=== PATIENT | male | born 1990 ===

== ENCOUNTER 2018-10-25 12:28 | Inpatient (IN) | payer OTHER ==
--- NOTE | 2018-10-25 13:07 | ED PDOC ---
Arrival/HPI - General Chief Complaint: Abdominal Pain Time Seen by Provider: 10/25/18 13:01 Historian: Patient - History of Present Illness Narrative History of Present Illness (Text): 10/25/18 13:02 28 y/o male, pmh including renal stone and hernia, nkda, c/o lt. sided abdominal pain with diarrhea and chest pain x 2 days with no recent traveling/fall. Aching pain, associated with couple episodes of watery diarrhea with no recent antibiotic use for the past 3 weeks, admits mid chest pain and non-exertional from diarrhea, no coughing, no palpitation, no change in vision, no numbness or tingling, no dizziness, no flank pain, no other medical or psychological complaints. Past Medical History - Provider Review Nursing Documentation Reviewed: Yes - Infectious Disease Hx of Infectious Diseases: None - Past Medical History Past Medical History: No Previous - Cardiac Hx Cardiac Disorders: No - Pulmonary Hx Respiratory Disorders: No - Neurological Hx Neurological Disorder: No - HEENT Hx HEENT Disorder: No - Renal Hx Renal Disorder: Yes Hx Kidney Stones: Yes (dx ) - Endocrine/Metabolic Hx Endocrine Disorders: No - Hematological/Oncological Hx Blood Disorders: No - Integumentary Hx Dermatological Disorder: No - Musculoskeletal/Rheumatological Hx Musculoskeletal Disorders: No - Gastrointestinal Hx Gastrointestinal Disorders: No Hx Fatty Liver Disease: Yes - Genitourinary/Gynecological Hx Genitourinary Disorders: Yes Hx Hematuria: Yes (11 yrs ago due to uti) Hx Urinary Tract Infection: Yes (11 yrs ago) - Psychiatric Hx Psychophysiologic Disorder: No Hx Substance Use: No - Past Surgical History Past Surgical History: No Previous - Surgical History Other/Comment: hernia 2015 - Anesthesia Hx Anesthesia: No - Suicidal Assessment Feels Threatened In Home Enviroment: No Family/Social History - Physician Review Nursing Documentation Reviewed: Yes Family/Social History: Unknown Family HX Smoking Status: Never Smoked Hx Alcohol Use: No Hx Substance Use: No Allergies/Home Meds Allergies/Adverse Reactions: Allergies No Known Allergies Allergy (Verified 11/09/15 16:12) Review of Systems - Review of Systems Constitutional: absent: Fatigue, Fevers Eyes: absent: Vision Changes ENT: absent: Hearing Changes Respiratory: absent: SOB, Cough Cardiovascular: Chest Pain Gastrointestinal: Abdominal Pain, Diarrhea. absent: Nausea, Vomiting Musculoskeletal: absent: Arthralgias, Back Pain Skin: absent: Rash, Pruritis Neurological: absent: Headache, Dizziness Psychiatric: absent: Anxiety, Depression, Suicidal Ideation Physical Exam Vital Signs Reviewed: Yes Vital Signs Temp Pulse Resp BP Pulse Ox 10/25/18 12:46 99.2 F 98 H 18 120/73 97 Temperature: Afebrile Blood Pressure: Normal Pulse: Regular Respiratory Rate: Normal Appearance: Positive for: Well-Appearing, Non-Toxic, Comfortable Pain Distress: Mild Mental Status: Positive for: Alert and Oriented X 3 - Systems Exam Head: Present: Atraumatic, Normocephalic Pupils: Present: PERRL Extroacular Muscles: Present: EOMI Conjunctiva: Present: Normal Ears: Present: NORMAL TM, Normal Canal Mouth: Present: Moist Mucous Membranes Neck: Present: Normal Range of Motion, Trachea Midline. No: Meningeal Signs, MIDLINE TENDERNESS, Paraspinal Tenderness, Lymphadenopathy Respiratory/Chest: Present: Clear to Auscultation, Good Air Exchange. No: Respiratory Distress, Accessory Muscle Use, Wheezes, Decreased Breath Sounds, Rales, Retracting, Rhonchi, Tachypneic, Tender to Palpation Cardiovascular: Present: Regular Rate and Rhythm, Normal S1, S2. No: Murmurs Abdomen: Present: Tenderness (lt. sided abdomen). No: Distention, Peritoneal Signs, Rebound, Guarding Back: Present: Normal Inspection. No: CVA Tenderness, Midline Tenderness, Paraspinal Tenderness, Pain with Leg Raise, Decubitus Ulcer Upper Extremity: Present: Normal Inspection. No: Cyanosis, Edema Lower Extremity: Present: Normal Inspection. No: Edema Neurological: Present: GCS=15, CN II-XII Intact, Speech Normal, Motor Func Grossly Intact, Gait Normal, Memory Normal Skin: Present: Warm, Dry, Normal Color. No: Rashes Psychiatric: Present: Alert, Oriented x 3, Normal Insight, Normal Concentration Medical Decision Making ED Course and Treatment: 10/25/18 13:15 -labs -ekg -cxr -ct -IVF/pepcid -Observe and reassess 10/25/18 15:42 -EKG: NSR @ 99 BHPM< no ST elevation or depression, T wave inversion lead III -Chest xray: No active disease. -CT abdomen and pelvis: Fluid-filled prominent small bowel loops and fluid in the colon may represent nonspecific acute infectious/inflammatory enteritis and colitis. No bowel dilatation or obstruction. Mild hepatomegaly and fatty liver. -Labs show no acute findings -Lipase is normal -Mg within normal limit -Trop after 24 hours is negative -UA ordered and no sample -Chest pain resolved, still have abdominal pain, IV morphine and toradol ordered with cipro/flagyl (ciprofloxacin with adverse reaction and side effect explained to him including but not limited to achilles tendon rupture and prolong QT which he understands and willing to take the risk, advised to stop the gym activities as well. 10/25/18 16:59 -Pt. still having pain on abdomen, will admit. 10/25/18 17:03 -I spoke to Dr. Romo, discussed about the case/labs/radiology result, agreed to admit for observation - RAD Interpretation Radiology Orders: -Chest xray: Date of service: 10/25/2018 HISTORY: chest pain x 2 days COMPARISON: 12/15/2013 TECHNIQUE: Chest PA and lateral FINDINGS: LUNGS: No active pulmonary disease. PLEURA: No significant pleural effusion identified. No pneumothorax apparent. CARDIOVASCULAR: No aortic atherosclerotic calcification present. Mild cardiomegaly no pulmonary vascular congestion. OSSEOUS STRUCTURES: No significant abnormalities. VISUALIZED UPPER ABDOMEN: Normal. OTHER FINDINGS: None. IMPRESSION: No active disease. -CT abdomen and pelvis: Date of service: 10/25/2018 PROCEDURE: CT Abdomen and Pelvis with contrast HISTORY: LLQ abdominal pain and diarrhea x 2 days. COMPARISON: 11/09/2015. TECHNIQUE: CT scan of the abdomen and pelvis was performed after administration of intravenous contrast. Oral contrast was not administered. Coronal and sagittal reformatted images were obtained. Contrast dose: Radiation dose: Total exam DLP = 1562.61 mGy-cm. This CT exam was performed using one or more of the following dose reduction techniques: Automated exposure control, adjustment of the mA and/or kV according to patient size, and/or use of iterative reconstruction technique. FINDINGS: LOWER THORAX: The visualized lungs are clear. LIVER: Mild hepatomegaly and fatty liver. No gross lesion or ductal dilatation. GALLBLADDER AND BILE DUCTS: Well distended. No calcified gallstones, wall thickening or pericholecystic fluid. PANCREAS: Normal in size with homogeneous enhancement. No gross lesion or ductal dilatation. SPLEEN: Normal in size and appearance. ADRENALS: No discrete nodule. KIDNEYS AND URETERS: Normal in size with homogeneous enhancement. There is a punctate nonobstructing stone in the lower pole of the right kidney. No hydronephrosis. No solid mass. VASCULATURE: No aortic aneurysm. There are no aortic atherosclerotic calcifications or mural plaque present. BOWEL: Evaluation of the bowel is limited in the absence of oral contrast. There are fluid-filled prominent small bowel loops and fluid in the colon. The left hemicolon is decompressed. No bowel wall thickening or obstruction. APPENDIX: Normal appendix. PERITONEUM: No free fluid. No free air. LYMPH NODES: No enlarged lymph nodes. BLADDER: Well distended and normal in appearance. REPRODUCTIVE: The uterus is normal in size. BONES: No acute fracture. Within normal limits for the patient's age. OTHER FINDINGS: None. IMPRESSION: Fluid-filled prominent small bowel loops and fluid in the colon may represent nonspecific acute infectious/inflammatory enteritis and colitis. No bowel dilatation or obstruction. Mild hepatomegaly and fatty liver. Warehouse Associate: Radiologist - EKG Interpretation Interpreted by ED Physician: Yes Type: 12 lead EKG - PA / CATTLE KILLER / Resident Statement MD/DO has reviewed & agrees with the documentation as recorded. Disposition/Present on Arrival - Present on Arrival Any Indicators Present on Arrival: No History of DVT/PE: No History of Uncontrolled Diabetes: No Urinary Catheter: No History of Decub. Ulcer: No History Surgical Site Infection Following: None - Disposition Have Diagnosis and Disposition been Completed?: Yes Diagnosis: Colitis, Leukocytosis, Atypical chest pain Disposition: HOSPITALIZED Disposition Time: 15:46 Patient Plan: Admission, Observation, Telemetry Patient Problems: Current Active Problems Problem Status Onset Atypical chest pain Acute Colitis Acute Leukocytosis Acute Condition: GUARDED Discharge Instructions (ExitCare): Chest Pain (ED) Prescriptions: Metronidazole [Flagyl] 500 mg PO TID #30 tablet Referrals: Felix Estevez MD [Primary Care Provider] - Follow up with primary Raiza Rivero MD [Family Provider] - Follow up with primary Forms: [facility] (Setswana), WORK NOTE
[2018-10-25] MEDS: Sodium Chloride 0.9% 1,000 ML IV SCH ×2 (13:36→21:29)
[2018-10-25 13:47] LABS: BASO # 0.02 K/mm3 (0.0-2.0); BASO % 0.1 % (0.0-3.0); EOS # 0.1 (0.0-0.7); EOS % 0.7 % (1.5-5.0); GRAN # 13.7 (1.4-6.5); GRAN % 87.8 % (50.0-68.0); HEMOGLOBIN 17.3 g/dL (14.0-18.0); LYMPH % 6.5 % (22.0-35.0); MEAN CELL VOLUME 87.1 fl (80.0-105.0); MEAN CORPUSCULAR HEMOGLOBIN 29.4 pg (25.0-35.0); MEAN CORPUSCULAR HGB CONC 33.8 g/dl (31.0-37.0); MEAN PLATELET VOLUME 10.7 fl (7.0-11.0); MONO # 0.8 (0.1-0.6); MONO % 4.9 % (1.0-6.0); RBC 5.88 10^6/uL (3.5-6.1); WHITE BLOOD COUNT 15.6 10^3/uL (4.5-11.0)
[2018-10-25 13:56] LABS: ALB/GLOB RATIO 1.4 (1.1-1.8); ALBUMIN 4.8 g/dL (3.0-4.8); ALT/SGPT 89 U/L (7-56); AST/SGOT 43 U/L (17-59); BLOOD UREA NITROGEN 13 mg/dL (7-21); GFR NON-AFRICAN AMERICAN > 60; LIPASE 61 U/L (23-300)
[2018-10-25 14:07] LABS: TROPONIN I < 0.01 ng/mL
--- NOTE | 2018-10-25 14:51 | RAD ---
Date of service: 10/25/2018 HISTORY: chest pain x 2 days COMPARISON: 12/15/2013 TECHNIQUE: Chest PA and lateral FINDINGS: LUNGS: No active pulmonary disease. PLEURA: No significant pleural effusion identified. No pneumothorax apparent. CARDIOVASCULAR: No aortic atherosclerotic calcification present. Mild cardiomegaly no pulmonary vascular congestion. OSSEOUS STRUCTURES: No significant abnormalities. VISUALIZED UPPER ABDOMEN: Normal. OTHER FINDINGS: None. IMPRESSION: No active disease.
--- NOTE | 2018-10-25 15:04 | CT ---
Date of service: 10/25/2018 PROCEDURE: CT Abdomen and Pelvis with contrast HISTORY: LLQ abdominal pain and diarrhea x 2 days. COMPARISON: 11/09/2015. TECHNIQUE: CT scan of the abdomen and pelvis was performed after administration of intravenous contrast. Oral contrast was not administered. Coronal and sagittal reformatted images were obtained. Contrast dose: Radiation dose: Total exam DLP = 1562.61 mGy-cm. This CT exam was performed using one or more of the following dose reduction techniques: Automated exposure control, adjustment of the mA and/or kV according to patient size, and/or use of iterative reconstruction technique. FINDINGS: LOWER THORAX: The visualized lungs are clear. LIVER: Mild hepatomegaly and fatty liver. No gross lesion or ductal dilatation. GALLBLADDER AND BILE DUCTS: Well distended. No calcified gallstones, wall thickening or pericholecystic fluid. PANCREAS: Normal in size with homogeneous enhancement. No gross lesion or ductal dilatation. SPLEEN: Normal in size and appearance. ADRENALS: No discrete nodule. KIDNEYS AND URETERS: Normal in size with homogeneous enhancement. There is a punctate nonobstructing stone in the lower pole of the right kidney. No hydronephrosis. No solid mass. VASCULATURE: No aortic aneurysm. There are no aortic atherosclerotic calcifications or mural plaque present. BOWEL: Evaluation of the bowel is limited in the absence of oral contrast. There are fluid-filled prominent small bowel loops and fluid in the colon. The left hemicolon is decompressed. No bowel wall thickening or obstruction. APPENDIX: Normal appendix. PERITONEUM: No free fluid. No free air. LYMPH NODES: No enlarged lymph nodes. BLADDER: Well distended and normal in appearance. REPRODUCTIVE: The uterus is normal in size. BONES: No acute fracture. Within normal limits for the patient's age. OTHER FINDINGS: None. IMPRESSION: Fluid-filled prominent small bowel loops and fluid in the colon may represent nonspecific acute infectious/inflammatory enteritis and colitis. No bowel dilatation or obstruction. Mild hepatomegaly and fatty liver.
[2018-10-25] MEDS ORDERED: metroNIDAZOLE IV 500 mg/100 ml 500 MG/100 ML BAG IVPB STA (15:40)
[2018-10-25] MEDS ORDERED: Ciprofloxacin 400mg/200ml D5W 400 MG/200 ML BAG IVPB STA (15:40)
[2018-10-25] MEDS ORDERED: Sodium Chloride 0.9% 500 ML IV STA (15:41)
[2018-10-25] MEDS ORDERED: Morphine 4 mg/ml ISec IVP STA (15:41)
[2018-10-25 16:45] LABS: PH,URINE 6.5 (4.7-8.0); URINE BILIRUBIN NEGATIVE (NEGATIVE); URINE BLOOD NEGATIVE (NEGATIVE); URINE GLUCOSE (UA) NEGATIVE (NEGATIVE); URINE LEUKOCYTE ESTERASE NEGATIVE Leu/uL (NEGATIVE); URINE PROTEIN NEGATIVE mg/dL (<30 mg/dL); URINE UROBILINOGEN 0.2 E.U./dL (<1 E.U./dL)
[2018-10-25 16:46] LABS: URINE APPEARANCE CLEAR (CLEAR); URINE COLOR YELLOW (YELLOW)
--- NOTE | 2018-10-25 20:12 | CP.PCM.HP ---
<LindaKeith R - Last Filed: 10/25/18 22:26> History of Present Illness - History of Present Illness History of Present Illness: PGY-2 H&P for Dr Castro Mr Cleaning is a 28 year old male with a PMHx of left-sided nephrolithiasis (2015) and right inguinal hernia who presents today with 2 days of left-sided abdominal pain and non-bloody diarrhea. He states the pain was initially crampy in nature and then became constant. He said yesterday he had 3 episodes of diarrhea and today he had 12 episodes of diarrhea. He denies nausea, fevers, chills, sick contacts, abnormal food intake, recent travel, recent abx use. He says the abdominal pain radiates into his chest. He last saw his PMD, Dr Pratt, 2 months ago and was told he had high liver markers - he was referred to GI Dr Estevez who diagnosed him with fatty liver and told him to eat a more healthier diet. PMHx: eft-sided nephrolithiasis (2015) and right inguinal hernia PSHx: right inguinal hernia repair 2013 Home Meds: denies SocialHx: denies tobacco use, social etoh use, denies illicit drug use, currently unemployed FamHx: mother with "thyroid issues", father with HTN, siblings healthy Present on Admission - Present on Admission Any Indicators Present on Admission: No Review of Systems - Review of Systems All systems: reviewed and no additional remarkable complaints except (as stated in HPI) Past Patient History - Infectious Disease Hx of Infectious Diseases: None - Past Medical History & Family History Past Medical History?: Yes - Past Social History Smoking Status: Never Smoked - CARDIAC Hx Cardiac Disorders: No - PULMONARY Hx Respiratory Disorders: No - NEUROLOGICAL Hx Neurological Disorder: No - HEENT Hx HEENT Problems: No - RENAL Hx Chronic Kidney Disease: Yes Hx Kidney Stones: Yes (dx ) - ENDOCRINE/METABOLIC Hx Endocrine Disorders: No - HEMATOLOGICAL/ONCOLOGICAL Hx Blood Disorders: No - INTEGUMENTARY Hx Dermatological Problems: No - MUSCULOSKELETAL/RHEUMATOLOGICAL Hx Musculoskeletal Disorders: No - GASTROINTESTINAL Hx Gastrointestinal Disorders: No Hx Fatty Liver Disease: Yes - GENITOURINARY/GYNECOLOGICAL Hx Genitourinary Disorders: Yes Hx Hematuria: Yes (11 yrs ago due to uti) Hx Urinary Tract Infection: Yes (11 yrs ago) - PSYCHIATRIC Hx Psychophysiologic Disorder: No Hx Substance Use: No - SURGICAL HISTORY Other/Comment: hernia 2015 - ANESTHESIA Hx Anesthesia: No Meds Home Medications: Home Medication List Medication Instructions Recorded Confirmed Type Metronidazole [Flagyl] 500 mg PO TID #30 tablet 10/25/18 Rx Allergies/Adverse Reactions: Allergies Allergy/AdvReac Type Severity Reaction Status Date / Time No Known Allergies Allergy Verified 11/09/15 16:12 Physical Exam - Constitutional Appears: Well, Non-toxic, No Acute Distress Additional comments: obese body habitus - Head Exam Head Exam: ATRAUMATIC, NORMAL INSPECTION - Eye Exam Eye Exam: EOMI, Normal appearance, PERRL Pupil Exam: NORMAL ACCOMODATION - ENT Exam ENT Exam: Mucous Membranes Moist - Neck Exam Neck exam: Positive for: Normal Inspection - Respiratory Exam Respiratory Exam: Clear to Auscultation Bilateral, NORMAL BREATHING PATTERN. absent: Rales, Rhonchi, Wheezes - Cardiovascular Exam Cardiovascular Exam: Tachycardia, REGULAR RHYTHM, +S1, +S2. absent: JVD, Systolic Murmur - GI/Abdominal Exam GI & Abdominal Exam: Normal Bowel Sounds, Soft, Tenderness. absent: Distended, Firm, Guarding, Hernia, Organomegaly, Rebound, Rigid Additional comments: tender to palpation on left abdomen - Extremities Exam Extremities exam: Positive for: normal capillary refill, normal inspection, pedal pulses present. Negative for: pedal edema - Back Exam Back exam: NORMAL INSPECTION. absent: CVA tenderness (L), CVA tenderness (R) - Neurological Exam Neurological exam: CN II-XII Intact, Oriented x3 - Psychiatric Exam Psychiatric exam: Normal Affect, Normal Mood - Skin Skin Exam: Intact, Normal Color, Warm Results - Vital Signs Recent Vital Signs: Last Vital Signs Temp 98.7 F 10/25/18 18:08 Pulse 100 H 10/25/18 19:53 Resp 18 10/25/18 19:53 BP 124/77 10/25/18 19:53 Pulse Ox 97 10/25/18 19:53 - Labs Result Diagrams: 10/25/18 13:20 10/25/18 13:20 Labs: Laboratory Results - last 24 hr 10/25/18 10/25/18 10/25/18 13:20 13:20 16:40 WBC 15.6 H RBC 5.88 Hgb 17.3 Hct 51.2 MCV 87.1 MCH 29.4 MCHC 33.8 RDW 14.0 Plt Count 208 MPV 10.7 Gran % 87.8 H Lymph % (Auto) 6.5 L [place] % (Auto) 4.9 Eos % (Auto) 0.7 L Baso % (Auto) 0.1 Gran # 13.70 H Lymph # (Auto) 1.0 L [place] # (Auto) 0.8 H Eos # (Auto) 0.1 Baso # (Auto) 0.02 Sodium 142 Potassium 4.4 Chloride 107 Carbon Dioxide 27 Anion Gap 13 BUN 13 Creatinine 0.9 Est GFR ( Amer) > 60 Est GFR (Non-Af Amer) > 60 Random Glucose 94 Calcium 10.0 Magnesium 2.1 Total Bilirubin 0.9 AST 43 ALT 89 H Alkaline Phosphatase 70 Troponin I < 0.01 Total Protein 8.2 Albumin 4.8 Globulin 3.5 Albumin/Globulin Ratio 1.4 Lipase 61 Urine Color Yellow Urine Appearance Clear Urine pH 6.5 Ur Specific [place] <= 1.005 Urine Protein Negative Urine Glucose (UA) Negative Urine Ketones Trace H Urine Blood Negative Urine Nitrate Negative Urine Bilirubin Negative Urine Urobilinogen 0.2 Ur Leukocyte Esterase Negative Assessment & Plan - Assessment and Plan (Free Text) Plan: Mr Cleaning is a 28 year old male with a PMHx of left-sided nephrolithiasis (2016) and right inguinal hernia who presents today with 2 days of left-sided abdominal pain and non-bloody diarrhea: Enteritis/Colitis -p/w left-sided abd pain w/ non-bloody diarrhea for 2 days -CT abd/pelvis w/ iv contrast only: * Fluid-filled prominent small bowel loops and fluid in the colon may represent nonspecific acute infectious/inflammatory enteritis and colitis. No bowel dilatation or obstruction. -consult ID, Dr Winston -consult GI, Dr Estevez -received flagyl 500mg ivp and cipro 400mg ivp in the ED -continue flagyl 500mg ivp q8h; I tried to continue cipro 400mg ivp q12h however it is restricted to ID - ID will need to continue this medication (or whatever they deem appropriate) -NS @ 100cc/hr -NPO except meds for now -f/u hep panel, stool and ova, stool cx, cdiff, fecal leukocytes, blood cx, procalc Chest Pain -radiation from abdominal pain -1st trop neg; f/u serial trops -ekg nsr with normal rate -f/u lipid panel Fatty Liver -CT abd/pelvis w/ iv contrast only: * Mild hepatomegaly and fatty liver. -Patient had an outpatient abd ultrasound done "a few months ago" which also showed fatty liver - he was referred to GI Dr Estevez at that time - Dr Estevez recommended patient make diet and lifestyle changes PPX -AC or SCDs not indicated -protonix 40mg po qd -NPO except meds for now Seen and discussed with Dr Castro <Stacey Castro - Last Filed: 10/26/18 01:16> Results - Vital Signs Recent Vital Signs: Last Vital Signs Temp 97.2 F L 10/25/18 20:29 Pulse 100 H 10/25/18 21:07 Resp 18 10/25/18 21:07 BP 127/78 10/25/18 21:07 Pulse Ox 98 10/25/18 21:07 - Labs Result Diagrams: 10/25/18 13:20 10/25/18 13:20 Labs: Laboratory Results - last 24 hr 10/25/18 10/25/18 10/25/18 13:20 13:20 16:40 WBC 15.6 H RBC 5.88 Hgb 17.3 Hct 51.2 MCV 87.1 MCH 29.4 MCHC 33.8 RDW 14.0 Plt Count 208 MPV 10.7 Gran % 87.8 H Lymph % (Auto) 6.5 L [place] % (Auto) 4.9 Eos % (Auto) 0.7 L Baso % (Auto) 0.1 Gran # 13.70 H Lymph # (Auto) 1.0 L [place] # (Auto) 0.8 H Eos # (Auto) 0.1 Baso # (Auto) 0.02 Sodium 142 Potassium 4.4 Chloride 107 Carbon Dioxide 27 Anion Gap 13 BUN 13 Creatinine 0.9 Est GFR ( Amer) > 60 Est GFR (Non-Af Amer) > 60 Random Glucose 94 Calcium 10.0 Magnesium 2.1 Total Bilirubin 0.9 AST 43 ALT 89 H Alkaline Phosphatase 70 Troponin I < 0.01 Total Protein 8.2 Albumin 4.8 Globulin 3.5 Albumin/Globulin Ratio 1.4 Lipase 61 Urine Color Yellow Urine Appearance Clear Urine pH 6.5 Ur Specific [place] <= 1.005 Urine Protein Negative Urine Glucose (UA) Negative Urine Ketones Trace H Urine Blood Negative Urine Nitrate Negative Urine Bilirubin Negative Urine Urobilinogen 0.2 Ur Leukocyte Esterase Negative Attending/Attestation - Attestation I have personally seen and examined this patient.: Yes I have fully participated in the care of the patient.: Yes I have reviewed all pertinent clinical information: Yes Notes (Text): 10/26/18 01:09 Note: Pt denies history of black stools. O/E no scleral icterus noted. Pt seen with the resident by the bedside. Duiscussed case in detail. Agree with documentation,assessment and plan of treatment.
[2018-10-26] MEDS: metroNIDAZOLE IV 500 mg/100 ml 500 MG/100 ML BAG IVPB SCH ×4 (00:01→21:42)
[2018-10-26 01:49] VITALS: BMI 42.9
[2018-10-26 07:39] LABS: BASO # 0.01 K/mm3 (0.0-2.0); BASO % 0.2 % (0.0-3.0); EOS # 0.1 (0.0-0.7); EOS % 1.4 % (1.5-5.0); GRAN # 4.36 (1.4-6.5); GRAN % 69.4 % (50.0-68.0); HEMOGLOBIN 14.7 g/dL (14.0-18.0); LYMPH # 1.3 (1.2-3.4); LYMPH % 20.7 % (22.0-35.0); MEAN CELL VOLUME 86.9 fl (80.0-105.0); MEAN CORPUSCULAR HEMOGLOBIN 28.7 pg (25.0-35.0); MEAN PLATELET VOLUME 10.5 fl (7.0-11.0); MONO # 0.5 (0.1-0.6); MONO % 8.3 % (1.0-6.0); RBC 5.13 10^6/uL (3.5-6.1); WHITE BLOOD COUNT 6.3 10^3/uL (4.5-11.0)
[2018-10-26 07:59] LABS: TROPONIN I < 0.01 ng/mL
[2018-10-26 08:01] LABS: LDL CHOLESTEROL 90 mg/dL (0-129)
[2018-10-26 08:12] LABS: ALB/GLOB RATIO 1.3 (1.1-1.8); ALBUMIN 3.7 g/dL (3.0-4.8); ALT/SGPT 71 U/L (7-56); AST/SGOT 33 U/L (17-59); BLOOD UREA NITROGEN 8 mg/dL (7-21); CALCIUM 8.7 mg/dL (8.4-10.5); GFR NON-AFRICAN AMERICAN > 60; HDL CHOLESTEROL 34 mg/dL (29-60)
--- NOTE | 2018-10-26 08:31 | CARD ---
APPROVED REPORT Date of service: 10/25/2018 EKG Measurement Heart [id number] <Conclusion> Normal sinus rhythm LVH ST elevations c/w early repolarization, pericarditis, injury pattern, etc
[2018-10-26] MEDS: Sodium Chloride 0.9% 1,000 ML IV SCH ×3 (11:38→21:43)
[2018-10-26] MEDS: Pantoprazole 40 mg EC Tab PO SCH (11:39)
[2018-10-26 12:23] LABS: HEPATITIS B SURFACE AG Negative (NEGATIVE)
[2018-10-26 12:28] LABS: HEPATITIS A IGM NEGATIVE (NEGATIVE)
[2018-10-26 12:30] LABS: HEPATITIS B CORE AB NEGATIVE (NEGATIVE)
[2018-10-26 12:40] LABS: HEPATITIS C ANTIBODY NEGATIVE (NEGATIVE)
--- NOTE | 2018-10-26 13:12 | CP.PCM.PN ---
<Edwin Stephens - Last Filed: 10/26/18 22:45> Subjective - Date & Time of Evaluation Date of Evaluation: 10/26/18 Time of Evaluation: 13:12 - Subjective Subjective: INTERNAL MEDICINE PROGRESS NOTE FOR DR. DENIZ Stephens PGY Pt seen and examined at bedside this am. He reports his abdominal pain has improved. He has noticed his diarrhea is not as watery as previous. Aside from LLQ abdominal pain and mild diarrhea, he denies all other 12 point ROS Objective - Vital Signs/Intake and Output Vital Signs (last 24 hours): Temp Pulse Resp BP Pulse Ox 98.3 F 90 18 113/77 96 10/26/18 12:00 10/26/18 12:00 10/26/18 12:00 10/26/18 12:00 10/26/18 06:00 Intake and Output: 10/26/18 10/26/18 06:59 18:59 Intake Total 1000 Output Total 1 Balance 999 - Medications Medications: Current Medications Sodium Chloride (Sodium Chloride 0.9%) 1,000 mls @ 100 mls/hr IV .Q10H [facility] Last Admin: 10/26/18 11:38 Dose: 100 mls/hr Metronidazole (Flagyl) 500 mg in 100 mls @ 100 mls/hr IVPB Q8 MARYJANE; Protocol Last Admin: 10/26/18 05:41 Dose: 100 mls/hr Ondansetron HCl (Zofran Inj) 4 mg IVP Q6H PRN PRN Reason: Nausea/Vomiting Pantoprazole Sodium (Protonix Ec Tab) 40 mg PO DAILY [facility] Last Admin: 10/26/18 11:39 Dose: 40 mg - Labs Labs: 10/26/18 07:00 10/26/18 07:00 - Constitutional Appears: Well, Non-toxic, No Acute Distress - Head Exam Head Exam: NORMAL INSPECTION, NORMOCEPHALIC - Eye Exam Eye Exam: EOMI, Normal appearance - ENT Exam ENT Exam: Mucous Membranes Moist, Normal Exam - Neck Exam Neck Exam: Normal Inspection - Respiratory Exam Respiratory Exam: Clear to Ausculation Bilateral, NORMAL BREATHING PATTERN - Cardiovascular Exam Cardiovascular Exam: REGULAR RHYTHM, +S1, +S2 - GI/Abdominal Exam GI & Abdominal Exam: Soft, Tenderness (LLQ mild tenderness), Normal Bowel Sounds - Extremities Exam Extremities Exam: Normal Inspection. absent: Calf Tenderness - Back Exam Back Exam: NORMAL INSPECTION - Neurological Exam Neurological Exam: Alert, Awake, Oriented x3 - Psychiatric Exam Psychiatric exam: Normal Affect, Normal Mood - Skin Skin Exam: Dry, Intact, Warm Assessment and Plan - Assessment and Plan (Free Text) Assessment: 28 year old male with a PMHx of left-sided nephrolithiasis (2016) and right inguinal hernia who presents today with 2 days of left-sided abdominal pain and non-bloody diarrhea: Plan: Enteritis/Colitis CT abd/pelvis w/ iv contrast only: Fluid-filled prominent small bowel loops and fluid in the colon may represent nonspecific acute infectious/inflammatory enteritis and colitis. No bowel dilatation or obstruction. Completed ciprofloxacin dose, continue flagyl Continue cefepime per ID recs NS @ 100cc/hr Advance diet as tolerated Procalcitonin 0.13 f/u cultures f/u hep panel, stool and ova, stool cx, ID/GI on consult. appreciate recs Chest Pain radiation from abdominal pain st trop neg; f/u serial trops ekg nsr with normal rate f/u lipid panel Fatty Liver CT abd/pelvis w/ iv contrast only: Mild hepatomegaly and fatty liver. Patient has known history of fatty liver. Pt already aware. Has seen Dr. Estevez previously and was told to make lifestyle changes PPX: protonix Case seen, examined and discussed with attending physician, Dr. Deniz Correia PGY1 <Naina Guaman R - Last Filed: 10/28/18 08:33> Objective - Vital Signs/Intake and Output Vital Signs (last 24 hours): Temp Pulse Resp BP Pulse Ox 98 F 78 18 129/76 95 10/27/18 11:49 10/27/18 11:49 10/27/18 11:49 10/27/18 11:49 10/27/18 06:00 - Labs Labs: 10/27/18 07:00 10/27/18 07:00 Attending/Attestation - Attestation I have personally seen and examined this patient.: Yes I have fully participated in the care of the patient.: Yes I have reviewed all pertinent clinical information, including history, physical exam and plan: Yes Notes (Text): Patient seen and examined by me with resident at 10:20AM on 10/26/18. Case including HPI, physical exam, and assessment and plan discussed with resident. Agree with above with following additions/corrections. Patient is a 28-year-old male with past medical history significant for left- sided nephrolithiasis and right inguinal hernia that presented to the emergency room with a 2 day history of left-sided abdominal pain and nonbloody diarrhea. Patient states that he is feeling a little bit better. States he still having some left lower quadrant abdominal pain that is crampy in nature. It does not radiate anywhere. Patient does have some associated diarrhea. He states that however the bowel movements are starting to become more "thick." Patient denies any nausea or vomiting. Patient is tolerating diet. Patient denies chest pain or shortness of breath. No headaches or dizziness. No fevers or chills. No dysuria. Physical exam: General: Awake and alert lying in bed in no acute distress. HEENT: Normocephalic, atraumatic. Extraocular muscles intact, pupils equal and reactive, no scleral icterus. Oropharynx is pink moist. Neck is supple. Cardiovascular: Regular rhythm. Normal S1 and S2. No murmurs, rubs, or gallops appreciated Pulmonary: Normal respiratory effort. No rhonchi, rales, or wheezing appreciated Gastrointestinal: Soft, nondistended. Positive left lower quadrant tenderness. Positive bowel sounds all 4 quadrants. No guarding. Musculoskeletal: Moves all extremities. No calf tenderness. No edema. Central nervous system: AAO x 3, CN 2-12 grossly intact. Dermatologic: Skin warm and dry. Assessment and plan: Patient is a 28-year-old male with past medical history significant for left-sided nephrolithiasis and right inguinal hernia that presented to the emergency room with a 2 day history of left-sided abdominal pain and nonbloody diarrhea. 1. Gastroenteritis. Left lower quadrant abdominal pain. Diarrhea. CT abdomen and pelvis radiologist showed fluid-filled prominent small bowel loops and fluid in the colon may represent nonspecific acute infectious/inflammatory enteritis and colitis, dilatation or obstruction, mild hepatomegaly and fatty liver. Patient on cefepime and Flagyl. Pro-calcitonin 0.13. Leukocytosis resolved. Patient afebrile. Stool cultures negative. Stool for C. difficile negative. Patient tolerating diet. Advance as tolerated. GI following, recommendations appreciated. ID following, recommendations appreciated. 2. Fatty liver. Patient counseled on diet and exercise. 3. Chest pain. Noncardiac. Resolved. Case was discussed in detail with the patient regarding current diagnosis and treatment plan. All questions answered.
--- NOTE | 2018-10-26 13:19 | CARD ---
APPROVED REPORT Date of service: 10/26/2018 EKG Measurement Heart [id number] <Conclusion> Normal sinus rhythm Moderate voltage criteria for LVH, may be normal variant ST elevation, consider early repolarization, pericarditis, or injury Abnormal ECG
--- NOTE | 2018-10-26 18:15 | CP.PCM.CON ---
History of Present Illness - History of Present Illness History of Present Illness: Infectious Disease Consultation: October 26, 2018 28 yo male with history of left sided abdominal pain for the past two days and non-bloody diarrhea. C. Diff testing was negative. Patient recently had martinez saminitis. PMHx of left-sided nephrolithiasis and right inguinal hernia. Initial leukocytosis of 15.6. Procalcitonin of 0.13. CT abdomen showing enteritis and/or colitis. Afebrile. Stool studies pending. Cultures pending. PMHx: nephrolithiasis left kidney, right inguinal hernia. PSHx: 2013 right inguinal hernia repair Allergies: NKDA Social Hx: No tobacco No illicit drug use Social EtOH Unemployed currently Active Medications Sodium Chloride (Sodium Chloride 0.9%) 1,000 mls @ 100 mls/hr IV .Q10H [facility] Last Admin: 10/26/18 13:16 Dose: Not Given Metronidazole (Flagyl) 500 mg in 100 mls @ 100 mls/hr IVPB Q8 MARYJANE; Protocol Last Admin: 10/26/18 13:16 Dose: 100 mls/hr Ondansetron HCl (Zofran Inj) 4 mg IVP Q6H PRN PRN Reason: Nausea/Vomiting Pantoprazole Sodium (Protonix Ec Tab) 40 mg PO DAILY [facility] Last Admin: 10/26/18 11:39 Dose: 40 mg Family Hx: none given ROS: No fevers, chills, nausea, vomiting, diarrhea, headaches, dizziness, chest pain, melena, hematuria, hematemesis, hematochezia, depression, anxiety Patient with abdominal pain Past Patient History - Infectious Disease Hx of Infectious Diseases: None - Past Medical History & Family History Past Medical History?: Yes - Past Social History Smoking Status: Never Smoked - CARDIAC Hx Cardiac Disorders: No - PULMONARY Hx Respiratory Disorders: No - NEUROLOGICAL Hx Neurological Disorder: No - HEENT Hx HEENT Problems: No - RENAL Hx Kidney Stones: Yes Other/Comment: Renal Disease - ENDOCRINE/METABOLIC Hx Endocrine Disorders: No - HEMATOLOGICAL/ONCOLOGICAL Hx Blood Disorders: No - INTEGUMENTARY Hx Dermatological Problems: No - MUSCULOSKELETAL/RHEUMATOLOGICAL Hx Back Pain: Yes Hx Falls: No - GASTROINTESTINAL Hx Gastrointestinal Disorders: No Hx Fatty Liver Disease: Yes - GENITOURINARY/GYNECOLOGICAL Hx Hematuria: Yes Hx Urinary Tract Infection: Yes - PSYCHIATRIC Hx Psychophysiologic Disorder: No Hx Substance Use: No - SURGICAL HISTORY Hx Surgeries: Yes (R inguinal hernia repair) - ANESTHESIA Hx Anesthesia: No Meds Home Medications: Home Medication List Medication Instructions Recorded Confirmed Type Metronidazole [Flagyl] 500 mg PO TID #30 tablet 10/25/18 Rx Allergies/Adverse Reactions: Allergies Allergy/AdvReac Type Severity Reaction Status Date / Time No Known Allergies Allergy Verified 11/09/15 16:12 - Medications Medications: Current Medications Sodium Chloride (Sodium Chloride 0.9%) 1,000 mls @ 100 mls/hr IV .Q10H [facility] Last Admin: 10/26/18 13:16 Dose: Not Given Metronidazole (Flagyl) 500 mg in 100 mls @ 100 mls/hr IVPB Q8 [facility]; Protocol Last Admin: 10/26/18 13:16 Dose: 100 mls/hr Ondansetron HCl (Zofran Inj) 4 mg IVP Q6H PRN PRN Reason: Nausea/Vomiting Pantoprazole Sodium (Protonix Ec Tab) 40 mg PO DAILY [facility] Last Admin: 10/26/18 11:39 Dose: 40 mg Physical Exam - Constitutional Appears: Well, Non-toxic, No Acute Distress Additional comments: Obese - Head Exam Head Exam: ATRAUMATIC, NORMOCEPHALIC - Eye Exam Eye Exam: EOMI, PERRL Pupil Exam: NORMAL ACCOMODATION, PERRL - ENT Exam ENT Exam: Mucous Membranes Moist, Normal External Ear Exam, TM's Normal Bilaterally - Neck Exam Neck exam: Positive for: Full Rom, Normal Inspection - Respiratory Exam Respiratory Exam: Clear to Auscultation Bilateral, NORMAL BREATHING PATTERN. absent: Rales, Rhonchi, Wheezes - Cardiovascular Exam Cardiovascular Exam: Tachycardia, REGULAR RHYTHM, RRR, +S1, +S2 - GI/Abdominal Exam GI & Abdominal Exam: Normal Bowel Sounds, Soft, Tenderness (Mild-Mod Left lower quadrant tenderness.) - Extremities Exam Extremities exam: Positive for: full ROM, normal inspection - Neurological Exam Neurological exam: Alert, CN II-XII Intact, Oriented x3 - Psychiatric Exam Psychiatric exam: Normal Affect, Normal Mood - Skin Skin Exam: Intact, Normal Color Results - Vital Signs Recent Vital Signs: Last Vital Signs Temp 98.3 F 10/26/18 12:00 Pulse 90 10/26/18 12:00 Resp 18 10/26/18 12:00 BP 113/77 10/26/18 12:00 Pulse Ox 96 10/26/18 06:00 - Labs Result Diagrams: 10/26/18 07:00 10/26/18 07:00 Labs: Laboratory Results - last 24 hr 10/25/18 10/26/18 10/26/18 13:20 00:48 00:54 WBC RBC Hgb Hct MCV MCH MCHC RDW Plt Count MPV Gran % Lymph % (Auto) Wood % (Auto) Eos % (Auto) Baso % (Auto) Gran # Lymph # (Auto) Wood # (Auto) Eos # (Auto) Baso # (Auto) Sodium Potassium Chloride Carbon Dioxide Anion Gap BUN Creatinine Est GFR ( Amer) Est GFR (Non-Af Amer) Random Glucose Calcium Total Bilirubin AST ALT Alkaline Phosphatase Troponin I < 0.01 Total Protein Albumin Globulin Albumin/Globulin Ratio Triglycerides Cholesterol LDL Cholesterol Direct HDL Cholesterol Procalcitonin Stool Leukocytes, Qual Negative Hepatitis A IgM Ab Negative Hep Bs Antigen Negative Hep B Core IgM Ab Negative Hepatitis C Antibody Negative 10/26/18 10/26/18 10/26/18 00:54 07:00 07:00 WBC 6.3 D RBC 5.13 Hgb 14.7 D Hct 44.6 MCV 86.9 MCH 28.7 MCHC 33.0 RDW 14.0 Plt Count 160 MPV 10.5 Gran % 69.4 H Lymph % (Auto) 20.7 L Wood % (Auto) 8.3 H Eos % (Auto) 1.4 L Baso % (Auto) 0.2 Gran # 4.36 Lymph # (Auto) 1.3 Wood # (Auto) 0.5 Eos # (Auto) 0.1 Baso # (Auto) 0.01 Sodium 141 Potassium 4.0 Chloride 109 H Carbon Dioxide 26 Anion Gap 10 BUN 8 Creatinine 0.7 L Est GFR ( Amer) > 60 Est GFR (Non-Af Amer) > 60 Random Glucose 81 Calcium 8.7 Total Bilirubin 0.8 AST 33 ALT 71 H Alkaline Phosphatase 55 Troponin I < 0.01 Total Protein 6.6 Albumin 3.7 Globulin 2.9 Albumin/Globulin Ratio 1.3 Triglycerides 46 Cholesterol 142 LDL Cholesterol Direct 90 HDL Cholesterol 34 Procalcitonin 0.13 L Stool Leukocytes, Qual Hepatitis A IgM Ab Hep Bs Antigen Hep B Core IgM Ab Hepatitis C Antibody Assessment & Plan - Assessment and Plan (Free Text) Assessment: 28 yo male with presentation of enteritis and/or colitis with left sided abdominal pain. CT showing inflammation to the large bowel. Currently NPO. Initial leukocytosis of 15.6 that has improved. Dehydration initially? Continue with Cefepime and Flagyl for treatment at this time. C. Diff testing was negative. Rest of stool studies are pending. Thank you for allowing me to participate in the care of the patient, we will follow with you.
[2018-10-26] MEDS: Cefepime 1gm in NS 100ml 1 GM/100 ML BAG IVPB SCH (21:43)
[2018-10-27] MEDS: metroNIDAZOLE IV 500 mg/100 ml 500 MG/100 ML BAG IVPB SCH ×2 (05:21→14:51)
[2018-10-27] MEDS: Sodium Chloride 0.9% 1,000 ML IV SCH (05:22)
[2018-10-27 06:23] VITALS: O2SAT 95
[2018-10-27 07:17] LABS: BASO # 0.01 K/mm3 (0.0-2.0); BASO % 0.2 % (0.0-3.0); EOS # 0.2 (0.0-0.7); EOS % 3.5 % (1.5-5.0); GRAN # 3.43 (1.4-6.5); GRAN % 62.7 % (50.0-68.0); HEMOGLOBIN 15.2 g/dL (14.0-18.0); LYMPH # 1.3 (1.2-3.4); LYMPH % 23.4 % (22.0-35.0); MEAN CELL VOLUME 86.5 fl (80.0-105.0); MEAN CORPUSCULAR HEMOGLOBIN 28.5 pg (25.0-35.0); MEAN PLATELET VOLUME 10.9 fl (7.0-11.0); MONO # 0.6 (0.1-0.6); MONO % 10.2 % (1.0-6.0); RBC 5.33 10^6/uL (3.5-6.1); WHITE BLOOD COUNT 5.5 10^3/uL (4.5-11.0)
[2018-10-27 07:41] LABS: ALB/GLOB RATIO 1.3 (1.1-1.8); ALT/SGPT 80 U/L (7-56); AST/SGOT 40 U/L (17-59); BLOOD UREA NITROGEN 5 mg/dL (7-21); CALCIUM 9.2 mg/dL (8.4-10.5); GFR NON-AFRICAN AMERICAN > 60
--- NOTE | 2018-10-27 08:45 | CON ---
DATE: 10/26/2018 CONSULTATION GASTROENTEROLOGY REQUESTING PHYSICIAN: Dr Guaman REASON FOR CONSULT: I have been asked to see this 28-year-old male who comes to the hospital with increasing abdominal pain associated with several episodes of diarrhea. On the day of admission, he had 12 watery bowel movements. He denies and rectal bleeding, nausea, vomiting, hematemesis or rectal bleeding. The patient denies any ingestion of unusual foods or recent travel. PAST MEDICAL HISTORY: Notable for fatty liver disease, kidney stones. PAST SURGICAL HISTORY: Notable for right inguinal hernia repair. SOCIAL HISTORY: He denies cigarette smoking or alcohol use. FAMILY HISTORY: Noncontributory. PHYSICAL EXAMINATION: GENERAL: Young male, lying in bed, in no acute distress. VITAL SIGNS: Reveal temperature of 98.6, blood pressure 120/76, heart rate of 86. BMI is 43. HEENT: Reveal sclerae to be white. Conjunctivae pink. NECK: Supple. CHEST: Lungs are clear. HEART: Reveals regular rate and rhythm. ABDOMEN: Soft, nontender. No mass. EXTREMITIES: No edema. LABORATORY DATA: Reveal white blood cell count 6.3, hemoglobin 14.7. Chemistries reveal chloride of 109. AST 33, ALT 71. CT scan of the abdomen and pelvis shows a fluid-filled small bowel and colon. IMPRESSION: Probable acute gastroenteritis. RECOMMENDATIONS: 1. Check stool for C&S, O&P and C. diff. 2. I will start the patient on clear-liquid diet. This can be advanced as tolerated. Felix Estevez MD
[2018-10-27] MEDS: Pantoprazole 40 mg EC Tab PO SCH (10:47)
[2018-10-27] MEDS: Cefepime 1gm in NS 100ml 1 GM/100 ML BAG IVPB SCH (10:47)
[2018-10-27 11:50] VITALS: BP 129/76; PULSE 78; RESP 18; TEMP 98
--- NOTE | 2018-10-27 16:20 | CP.PCM.DIS ---
Provider - Provider Date of Admission: 10/26/18 15:31 Attending physician: Naina Guaman DO Primary care physician: Felix Estevez MD Consults: 10/25/18 20:26 Gastroenterology Consult Routine Comment: Consulting Provider: Felix Estevez Consulting Physician: Felix Estevez Reason for Consult: abd pain; diarrhea; CT -> enteritis/colitis 10/25/18 20:28 Infectious Disease Consult Routine Comment: Consulting Provider: Jerry Winston Consulting Physician: Jerry Winston Reason for Consult: abd pain; diarrhea; CT -> enteritis/colitis Time Spent in preparation of Discharge (in minutes): 45 Diagnosis - Discharge Diagnosis (1) Gastroenteritis Status: Resolved Hospital Course - Lab Results Lab Results: Micro Results 10/26/18 09:30 Stool Stool Culture - Preliminary No growth. 10/26/18 09:30 Stool Ova and Parasite Concentrate Exam - Final 10/26/18 09:30 Stool C. difficile Antigen & Toxins A,B - Final 10/26/18 00:54 Blood Blood Culture - Preliminary NO GROWTH AFTER 24 HOURS Most Recent Lab Values WBC 5.5 10^3/uL (4.5-11.0) 10/27/18 07:00 RBC 5.33 10^6/uL (3.5-6.1) 10/27/18 07:00 Hgb 15.2 g/dL (14.0-18.0) 10/27/18 07:00 Hct 46.1 % (42.0-52.0) 10/27/18 07:00 MCV 86.5 fl (80.0-105.0) 10/27/18 07:00 MCH 28.5 pg (25.0-35.0) 10/27/18 07:00 MCHC 33.0 g/dl (31.0-37.0) 10/27/18 07:00 RDW 14.0 % (11.5-14.5) 10/27/18 07:00 Plt Count 190 10^3/uL (120.0-450.0) 10/27/18 07:00 MPV 10.9 fl (7.0-11.0) 10/27/18 07:00 Gran % 62.7 % (50.0-68.0) 10/27/18 07:00 Lymph % (Auto) 23.4 % (22.0-35.0) 10/27/18 07:00 [place] % (Auto) 10.2 % (1.0-6.0) H 10/27/18 07:00 Eos % (Auto) 3.5 % (1.5-5.0) 10/27/18 07:00 Baso % (Auto) 0.2 % (0.0-3.0) 10/27/18 07:00 Gran # 3.43 (1.4-6.5) 10/27/18 07:00 Lymph # (Auto) 1.3 (1.2-3.4) 10/27/18 07:00 [place] # (Auto) 0.6 (0.1-0.6) 10/27/18 07:00 Eos # (Auto) 0.2 (0.0-0.7) 10/27/18 07:00 Baso # (Auto) 0.01 K/mm3 (0.0-2.0) 10/27/18 07:00 Sodium 141 mmol/L (132-148) 10/27/18 07:00 Potassium 4.3 mmol/L (3.6-5.0) 10/27/18 07:00 Chloride 107 mmol/L (98-107) 10/27/18 07:00 Carbon Dioxide 27 mmol/L (21-33) 10/27/18 07:00 Anion Gap 11 (10-20) 10/27/18 07:00 BUN 5 mg/dL (7-21) L 10/27/18 07:00 Creatinine 0.7 mg/dl (0.8-1.5) L 10/27/18 07:00 Est GFR ( Amer) > 60 10/27/18 07:00 Est GFR (Non-Af Amer) > 60 10/27/18 07:00 Random Glucose 86 mg/dL (70-110) 10/27/18 07:00 Calcium 9.2 mg/dL (8.4-10.5) 10/27/18 07:00 Magnesium 2.1 mg/dL (1.7-2.2) 10/25/18 13:20 Total Bilirubin 0.5 mg/dL (0.2-1.3) 10/27/18 07:00 AST 40 U/L (17-59) 10/27/18 07:00 ALT 80 U/L (7-56) H 10/27/18 07:00 Alkaline Phosphatase 58 U/L (38-126) 10/27/18 07:00 Troponin I < 0.01 ng/mL 10/26/18 07:00 Total Protein 7.1 g/dL (5.8-8.3) 10/27/18 07:00 Albumin 4.0 g/dL (3.0-4.8) 10/27/18 07:00 Globulin 3.1 gm/dL 10/27/18 07:00 Albumin/Globulin Ratio 1.3 (1.1-1.8) 10/27/18 07:00 Triglycerides 46 mg/dL (35-160) 10/26/18 07:00 Cholesterol 142 mg/dL (130-200) 10/26/18 07:00 LDL Cholesterol Direct 90 mg/dL (0-129) 10/26/18 07:00 HDL Cholesterol 34 mg/dL (29-60) 10/26/18 07:00 Lipase 61 U/L (23-300) 10/25/18 13:20 Procalcitonin 0.13 NG/ML (0.19-0.49) L 10/26/18 00:54 Urine Color Yellow (YELLOW) 10/25/18 16:40 Urine Appearance Clear (CLEAR) 10/25/18 16:40 Urine pH 6.5 (4.7-8.0) 10/25/18 16:40 Ur Specific [place] <= 1.005 (1.005-1.035) 10/25/18 16:40 Urine Protein Negative mg/dL (<30 mg/dL) 10/25/18 16:40 Urine Glucose (UA) Negative mg/dL (NEGATIVE) 10/25/18 16:40 Urine Ketones Trace mg/dL (NEGATIVE) H 10/25/18 16:40 Urine Blood Negative (NEGATIVE) 10/25/18 16:40 Urine Nitrate Negative (NEGATIVE) 10/25/18 16:40 Urine Bilirubin Negative (NEGATIVE) 10/25/18 16:40 Urine Urobilinogen 0.2 E.U./dL (<1 E.U./dL) 10/25/18 16:40 Ur Leukocyte Esterase Negative Edilberto/uL (NEGATIVE) 10/25/18 16:40 Stool Leukocytes, Qual Negative (NEGATIVE) 10/26/18 00:48 Hepatitis A IgM Ab Negative (NEGATIVE) 10/25/18 13:20 Hep Bs Antigen Negative (NEGATIVE) 10/25/18 13:20 Hep B Core IgM Ab Negative (NEGATIVE) 10/25/18 13:20 Hepatitis C Antibody Negative (NEGATIVE) 10/25/18 13:20 - Hospital Course Hospital Course: Upon Admission 28 year old male with a PMHx of left-sided nephrolithiasis (2015) and right inguinal hernia presented 2 days of left-sided abdominal pain and non-bloody diarrhea. He stated the pain was initially crampy in nature and then became cons tant. He presented with 3 episodes of diarrhea and today he had 12 episodes of diarrhea. He denied nausea, fevers, chills, sick contacts, abnormal food intake, recent travel, recent abx use. He says the abdominal pain radiated into his chest. He last saw his PMD, Dr Pratt, 2 months ago and was told he had high liver markers - he was referred to GI Dr Estevez who diagnosed him with fatty liver and told him to eat a more healthier diet. Hospital Admission: CT Abdomen revealed fluid-filled prominent small bowel loops and fluid in the colon may represent nonspecific acute infectious/inflammatory enteritis and colitis. No bowel dilatation or obstruction. Pt was treated with ciprofloxacin and flagyl, hydrated with IV NS, NPO with diet advanced as tolerated. He had an initial leukocytosis of 15.6 which downtrended throughout hospital course. He remained afebrile. Stool studies and c.diff testing were negative. He was evaluated by his traffic rate computer and infectious disease who agreed with course of antibiotics. Upon discharge: Pts reported significant improvement in symptoms. He no longer has diarrhea. His vitals are stable. Leukocytosis has resolved. Pt instructed to follow-up with GI & PMD Discharge Exam - Head Exam Head Exam: NORMAL INSPECTION, NORMOCEPHALIC - Eye Exam Eye Exam: EOMI, Normal appearance - ENT Exam ENT Exam: Mucous Membranes Moist, Normal Exam - Neck Exam Neck exam: Normal Inspection - Respiratory Exam Respiratory Exam: NORMAL BREATHING PATTERN, UNREMARKABLE - Cardiovascular Exam Cardiovascular Exam: REGULAR RHYTHM, +S1, +S2 - GI/Abdominal Exam GI & Abdominal Exam: Unremarkable - Extremities Exam Extremities exam: normal inspection - Back Exam Back exam: NORMAL INSPECTION - Psychiatric Exam Psychiatric exam: Normal Affect, Normal Mood - Skin Skin Exam: Dry, Intact, Warm Discharge Plan - Follow Up Plan Condition: GUARDED Disposition: HOME/ ROUTINE Additional Instructions: Please follow up with your primary care doctor, Dr. Rivero within 3-5 days of being discharged from the hospital Please follow up with your traffic rate computer (stomach doctor), Dr. Estevez within 3-5 days of being discharged from the hospital Please resume all home medications as previously prescribed. Please eat a bland diet until your symptoms completely resolve. Please advance your diet as you can tolerate If your symptoms return, please visit the nearest emergency room Referrals: Raiza Rivero MD [Family Provider] - Felix Estevez MD [Primary Care Provider] -
--- NOTE | 2018-10-27 18:13 | CP.PCM.PN ---
Subjective - Date & Time of Evaluation Date of Evaluation: 10/27/18 Time of Evaluation: 16:00 - Subjective Subjective: Infectious Disease Consultation: October 26, 2018 28 yo male with history of left sided abdominal pain for the past two days and non-bloody diarrhea. C. Diff testing was negative. Patient recently had trans aminitis. PMHx of left-sided nephrolithiasis and right inguinal hernia. Initial leukocytosis of 15.6. Procalcitonin of 0.13. CT abdomen showing enteritis and/or colitis. Afebrile. Stool studies negative. Cultures negative to date. Overall, the patient is feeling better. Objective - Vital Signs/Intake and Output Vital Signs (last 24 hours): Temp Pulse Resp BP Pulse Ox 98 F 78 18 129/76 95 10/27/18 11:49 10/27/18 11:49 10/27/18 11:49 10/27/18 11:49 10/27/18 06:00 Intake and Output: 10/27/18 10/27/18 06:59 18:59 Intake Total 2100 Output Total 1600 Balance 500 - Labs Labs: 10/27/18 07:00 10/27/18 07:00 - Constitutional Appears: Non-toxic, No Acute Distress - Head Exam Head Exam: ATRAUMATIC, NORMOCEPHALIC - Eye Exam Eye Exam: EOMI, PERRL Pupil Exam: NORMAL ACCOMODATION, PERRL - ENT Exam ENT Exam: Mucous Membranes Moist, Normal External Ear Exam, TM's Normal B ilaterally - Neck Exam Neck Exam: Full ROM, Normal Inspection - Respiratory Exam Respiratory Exam: Clear to Ausculation Bilateral, NORMAL BREATHING PATTERN. absent: Rales, Rhonchi, Wheezes - Cardiovascular Exam Cardiovascular Exam: Tachycardia, RRR, +S1, +S2 - GI/Abdominal Exam GI & Abdominal Exam: Soft, Normal Bowel Sounds. absent: Distended, Tenderness - Extremities Exam Extremities Exam: Full ROM, Normal Inspection - Neurological Exam Neurological Exam: Alert, Awake, CN II-XII Intact, Oriented x3 - Psychiatric Exam Psychiatric exam: Normal Affect, Normal Mood - Skin Skin Exam: Intact, Normal Color Assessment and Plan - Assessment and Plan (Free Text) Assessment: 28 yo male with presentation of enteritis and/or colitis with left sided abdominal pain. CT showing inflammation to the large bowel. Currently NPO. Initial leukocytosis of 15.6 that has improved. Dehydration initially? Continue with Cefepime and Flagyl for treatment at this time. C. Diff testing was negative. Rest of stool studies are pending. Likely viral enteritis or colitis. Thank you for allowing me to participate in the care of the patient, we will follow with you.
== END 2018-10-27 17:38 | disposition home or self-care (01) | DRG 249 ==
LOC: ED 12:28 → ERH 17:02 → 2RSO 10-26 00:12 → OBSVTOIN 10-26 15:31
PROVIDERS: ADMIT Internal Medicine; ATTEND Hospitalist
DX: K52.9 Noninfective gastroenteritis and colitis, unspecified (principal); K76.0 Fatty (change of) liver, not elsewhere classified; Z87.442 Personal history of urinary calculi